=== PATIENT | male | born 1960 | race African-American/Black ===

== ENCOUNTER 2022-04-21 18:26 | Emergency (ER) | payer MEDICAID ==
[~2022-04-21] VITALS: Ht 182.9 cm; Wt 109.0 kg
[2022-04-21 18:30] VITALS: BP 149/83
[2022-04-21] MEDS ORDERED: ALBU18HF2 INH (18:53)
[2022-04-21] MEDS ORDERED: BECL10.6 INH (18:53)
[2022-04-21] MEDS ORDERED: P50 PO (18:54)
[2022-04-21] MEDS ORDERED: ALBUTEROL 6.7GM HFA INHALER ORI ONE (19:00)
[2022-04-21] MEDS ORDERED: PREDNISONE 20MG TABLET PO ONE (19:00)
== END 2022-04-21 19:24 | disposition home or self-care (01) ==
LOC: ER 18:26
DX: R06.02 Shortness of breath (principal); R50.9 Fever, unspecified; R05.9 Cough, unspecified; J45.909 Unspecified asthma, uncomplicated; I10 Essential (primary) hypertension
CPT/HCPCS: 94640; 99283; J7512; 99281

== ENCOUNTER 2022-08-02 16:44 | Emergency (ER) | payer MEDICAID ==
[~2022-08-02] VITALS: Ht 177.8 cm; Wt 89.0 kg
[~2022-08-02 16:44] MED LIST: ALBU18HF2 INH; BECL10.6 INH; P50 PO
[2022-08-02 16:56] VITALS: BP 132/87
[2022-08-02 19:12] LABS: BASOPHILS % 0.9 % (0.0-2.0); EOSINOPHILS % 7.6 % (0.0-5.0); HEMATOCRIT. 43.8 % (42.0-52.0); HEMOGLOBIN. 14.5 g/dL (14.0-18.0); LYMPHOCYTES % 58.5 % (20.0-50.0); MEAN CORPUSCULAR HEMOGLOBIN 27.1 pg (28.0-32.0); MEAN CORPUSCULAR VOLUME 81.9 fL (80.0-94.0); MEAN PLATELET VOLUME 9.2 fl (7.4-10.4); MONOCYTES % 6.1 % (2.0-8.0); NEUTROPHILS % 26.9 % (40.0-76.0); PLATELET 160 x1000/uL (130-400); RED BLOOD CELL COUNT 5.35 mill/uL (4.7-6.1); RED CELL DISTRIBUTION WIDTH 15.6 % (11.6-14.6)
[2022-08-02 19:16] LABS: CHLORIDE 106 mEq/L (98-107)
[2022-08-02] MEDS ORDERED: POTA-202 MT (23:56)
[2022-08-02] MEDS ORDERED: FURO-151 MT (23:56)
== END 2022-08-03 | disposition home or self-care (01) ==
LOC: ER 16:44
DX: R60.0 Localized edema (principal); I11.0 Hypertensive heart disease with heart failure; I50.9 Heart failure, unspecified
CPT/HCPCS: 36415; 80048; 83880; 85025; 93970; 99284

== ENCOUNTER 2022-10-16 18:07 | Emergency (ER) | payer MEDICAID ==
[~2022-10-16] VITALS: Ht 182.9 cm; Wt 107.0 kg
[~2022-10-16 18:07] MED LIST changes: +FURO-151 MT; +POTA-202 MT
[2022-10-16] MEDS ORDERED: ALBUTEROL (0.083%) 2.5MG/3ML NEB HHN STA (21:55)
[2022-10-16] MEDS ORDERED: METHYLPREDNISOLONE SOD SUCC 125 MG/2 ML VIAL IV STA (21:55)
[2022-10-16] MEDS ORDERED: IPRATROPIUM BROMIDE (0.02%) 0.5MG/2.5ML NEB HHN STA (21:55)
[2022-10-16] MEDS ORDERED: MAGNESIUM 2 G PREMIX 50 ML IV ONE (22:00)
[2022-10-17] MEDS ORDERED: ALBU6.7H3 INH (00:06)
[2022-10-17] MEDS ORDERED: P50 MT (00:06)
[2022-10-17 00:09] LABS: BASOPHILS % 0.9 % (0.0-2.0); EOSINOPHILS % 10.6 % (0.0-5.0); HEMATOCRIT. 45.4 % (42.0-52.0); HEMOGLOBIN. 15.2 g/dL (14.0-18.0); LYMPHOCYTES % 67.6 % (20.0-50.0); MEAN PLATELET VOLUME 9.9 fl (7.4-10.4); MONOCYTES % 5.3 % (2.0-8.0); NEUTROPHILS % 15.6 % (40.0-76.0); PLATELET 163 x1000/uL (130-400); RED BLOOD CELL COUNT 5.61 mill/uL (4.7-6.1); RED CELL DISTRIBUTION WIDTH 15.9 % (11.6-14.6)
[2022-10-17 00:11] LABS: CHLORIDE 109 mEq/L (98-107)
[2022-10-17 00:56] VITALS: BP 142/81
== END 2022-10-17 01:06 | disposition home or self-care (01) ==
LOC: ER 18:07
DX: J45.901 Unspecified asthma with (acute) exacerbation (principal); R25.2 Cramp and spasm; R94.31 Abnormal electrocardiogram [ECG] [EKG]; I10 Essential (primary) hypertension
CPT/HCPCS: 36415; 71045; 80053; 85025; 93005; 93971; 94640; 96365; 96375; 99285; J2930; J3475; Z7610

== ENCOUNTER 2022-10-21 01:59 | Emergency (ER) | payer MEDICAID ==
[~2022-10-21] VITALS: Ht 182.9 cm; Wt 106.3 kg
[~2022-10-21 01:59] MED LIST changes: +ALBU6.7H3 INH; +P50 MT
[2022-10-21 02:08] VITALS: BP 139/76
[2022-10-21] MEDS ORDERED: PENI500T MT (03:17)
[2022-10-21] MEDS ORDERED: P20 MT (03:17)
[2022-10-21] MEDS ORDERED: BECL10.6 INH (03:17)
== END 2022-10-21 03:18 | disposition left against medical advice (07) ==
LOC: ER 02:20
DX: Z53.21 Procedure and treatment not carried out due to patient leaving prior to being seen by health care provider (principal)

== ENCOUNTER 2022-11-20 17:29 | Emergency (ER) | payer MEDICAID ==
[~2022-11-20] VITALS: Ht 182.9 cm; Wt 82.0 kg
[~2022-11-20 17:29] MED LIST changes: +P20 MT; +PENI500T MT
[2022-11-20 17:35] VITALS: BP 138/103
[2022-11-20] MEDS ORDERED: PREDNISONE 20MG TABLET PO STA (20:08)
[2022-11-20] MEDS ORDERED: ALBUTEROL (0.083%) 2.5MG/3ML NEB HHN STA (20:08)
[2022-11-20] MEDS ORDERED: IPRATROPIUM BROMIDE (0.02%) 0.5MG/2.5ML NEB HHN STA (20:08)
[2022-11-20 21:29] LABS: BASOPHILS % 0.5 % (0.0-2.0); EOSINOPHILS % 12.4 % (0.0-5.0); HEMATOCRIT. 45.5 % (42.0-52.0); HEMOGLOBIN. 14.9 g/dL (14.0-18.0); LYMPHOCYTES % 61.6 % (20.0-50.0); MEAN CORPUSCULAR HEMOGLOBIN 27.2 pg (28.0-32.0); MEAN CORPUSCULAR VOLUME 83.2 fL (80.0-94.0); MEAN PLATELET VOLUME 8.9 fl (7.4-10.4); MONOCYTES % 8.3 % (2.0-8.0); NEUTROPHILS % 17.2 % (40.0-76.0); PLATELET 170 x1000/uL (130-400); RED BLOOD CELL COUNT 5.47 mill/uL (4.7-6.1); RED CELL DISTRIBUTION WIDTH 16.3 % (11.6-14.6)
[2022-11-20 21:37] LABS: CHLORIDE 108 mEq/L (98-107)
[2022-11-20] MEDS ORDERED: P50 MT (22:21)
[2022-11-20] MEDS ORDERED: ALBU6.7H3 INH (22:21)
== END 2022-11-20 22:27 | disposition home or self-care (01) ==
LOC: ER 17:29
DX: J45.901 Unspecified asthma with (acute) exacerbation (principal); G47.00 Insomnia, unspecified; Z20.822 Contact with and (suspected) exposure to COVID-19; I10 Essential (primary) hypertension; Z79.51 Long term (current) use of inhaled steroids; Z79.899 Other long term (current) drug therapy
CPT/HCPCS: 36415; 80053; 83880; 84484; 85025; 87426; 87804; 94640; 99283; C9803; J7512; Z7610

== ENCOUNTER 2022-12-12 16:25 | Emergency (ER) | payer MEDICAID ==
[~2022-12-12] VITALS: Ht 182.9 cm; Wt 105.0 kg
[2022-12-12 16:31] VITALS: BP 139/91
[2022-12-12] MEDS ORDERED: DEXAMETHASONE 4MG TABLET PO ONE (18:00)
[2022-12-12] MEDS ORDERED: IPRATROPIUM/ALBUTEROL 0.5-3(2.5)MG/3ML NEB HHN ONE (18:00)
[2022-12-12] MEDS ORDERED: NIRM1TAB PO (19:49)
[2022-12-12] MEDS ORDERED: ALBU6.7H3 INH (19:49)
== END 2022-12-12 20:00 | disposition home or self-care (01) ==
LOC: ER 16:25
DX: U07.1 COVID-19 (principal); J45.901 Unspecified asthma with (acute) exacerbation
CPT/HCPCS: 94640; 99283; J8540; Z7610

== ENCOUNTER 2023-03-24 17:33 | Emergency (ER) | payer MEDICAID ==
[~2023-03-24] VITALS: Ht 182.9 cm; Wt 93.0 kg
[~2023-03-24 17:33] MED LIST changes: +NIRM1TAB PO
[2023-03-24 18:03] VITALS: BP 169/97
[2023-03-24 20:07] LABS: BASOPHILS % 0.8 % (0.0-2.0); EOSINOPHILS % 11.9 % (0.0-5.0); HEMATOCRIT. 49.1 % (42.0-52.0); HEMOGLOBIN. 16.3 g/dL (14.0-18.0); LYMPHOCYTES % 48.4 % (20.0-50.0); MEAN CORPUSCULAR HEMOGLOBIN 27.3 pg (28.0-32.0); MEAN CORPUSCULAR VOLUME 82.3 fL (80.0-94.0); MEAN PLATELET VOLUME 9.4 fl (7.4-10.4); MONOCYTES % 6.6 % (2.0-8.0); NEUTROPHILS % 32.3 % (40.0-76.0); PLATELET 151 x1000/uL (130-400); RED BLOOD CELL COUNT 5.96 mill/uL (4.7-6.1); RED CELL DISTRIBUTION WIDTH 15.4 % (11.6-14.6)
[2023-03-24 20:16] LABS: PROTHROMBIN TIME 11.1 sec (9.6-11.0)
[2023-03-24 20:19] LABS: CHLORIDE 111 mEq/L (98-107)
[2023-03-24] MEDS ORDERED: TUSSL MT (22:26)
[2023-03-24] MEDS ORDERED: NEBU-270 MC (22:26)
== END 2023-03-24 23:28 | disposition home or self-care (01) ==
LOC: ER 17:33
DX: J45.909 Unspecified asthma, uncomplicated (principal); I10 Essential (primary) hypertension; F12.10 Cannabis abuse, uncomplicated; Z79.899 Other long term (current) drug therapy
CPT/HCPCS: 36415; 71045; 80053; 83880; 84484; 85025; 93005; 99285

== ENCOUNTER 2024-03-29 13:29 | Emergency (ER) | payer MEDICAID, OTHER ==
[~2024-03-29] VITALS: Ht 182.9 cm; Wt 108.9 kg
[~2024-03-29 13:29] MED LIST changes: +NEBU-270 MC; +TUSSL MT
[2024-03-29 13:46] VITALS: O2SAT 99
[2024-03-29] MEDS: IBUPROFEN 400MG TABLET PO NR (15:45)
[2024-03-29 21:12] LABS: BASOPHILS % 0.8 % (0.0-2.0); EOSINOPHILS % 6.9 % (0.0-5.0); HEMATOCRIT. 44.2 % (42.0-52.0); HEMOGLOBIN. 14.9 g/dL (14.0-18.0); LYMPHOCYTES % 50.4 % (20.0-50.0); MEAN CORPUSCULAR HEMOGLOBIN 28.4 pg (28.0-32.0); MEAN CORPUSCULAR HGB CONC 33.6 g/dL (31.0-37.0); MEAN CORPUSCULAR VOLUME 84.5 fL (80.0-94.0); MEAN PLATELET VOLUME 9.4 fl (7.4-10.4); MONOCYTES % 8.3 % (2.0-8.0); NEUTROPHILS % 33.6 % (40.0-76.0); PLATELET 167 x1000/uL (130-400); RED BLOOD CELL COUNT 5.23 mill/uL (4.7-6.1); WHITE BLOOD COUNT 5.4 x1000/uL (4.5-11.0)
[2024-03-29 21:16] LABS: CHLORIDE 110 mEq/L (98-107); POTASSIUM 3.9 mEq/L (3.5-5.1); SODIUM 140 mEq/L (136-145)
[2024-03-29 21:17] LABS: CARBON DIOXIDE 26 mEq/L (21-32)
[2024-03-29 21:18] LABS: CALCIUM 9.6 mg/dL (8.7-10.4)
[2024-03-29 21:22] LABS: CREATININE 0.9 mg/dL (0.6-1.3); GLUCOSE 83 mg/dL (70-105); UREA NITROGEN BLOOD 11 mg/dL (9-23)
[2024-03-29 21:23] LABS: TROPONIN I HIGH SENSITIVITY 4 ng/L (3.0-53)
[2024-03-29 21:24] LABS: ALANINE AMINOTRANSFERASE 46 IU/L (10-49); ALBUMIN 4.3 g/dL (3.2-4.8); ASPARTATE AMINOTRANSFERASE 50 IU/L (<34)
[2024-03-29 21:25] LABS: BILIRUBIN TOTAL 0.8 mg/dL (0.1-1.0); PROTEIN TOTAL 6.8 g/dL (6.0-8.3)
[2024-03-29 22:51] VITALS: BP 140/77; PULSE 64; RESP 18; TEMP 97.7
== END 2024-03-29 22:54 | disposition home or self-care (01) ==
LOC: ER 13:29
DX: R60.0 Localized edema (principal); M54.30 Sciatica, unspecified side; J45.909 Unspecified asthma, uncomplicated; I10 Essential (primary) hypertension; F12.90 Cannabis use, unspecified, uncomplicated
CPT/HCPCS: 36415; 71045; 80053; 83880; 84484; 85025; 93970; 99284

== ENCOUNTER 2024-04-15 18:12 | Emergency (ER) | payer OTHER ==
[~2024-04-15] VITALS: Ht 180.3 cm; Wt 110.0 kg
[2024-04-15 18:25] VITALS: O2SAT 95
[2024-04-15] MEDS: POVIDONE-IODINE 10% TOPICAL SOLN 240ML TOP ONE (18:44)
[2024-04-15] MEDS: LIDOCAINE HCL 1% 20ML VIAL (Pyxis) INJ INFIL ONE (18:44)
[2024-04-15 20:02] VITALS: BP 141/86; PULSE 82; RESP 16; TEMP 98.2
== END 2024-04-15 20:03 | disposition home or self-care (01) ==
LOC: ER 18:12
DX: S61.213A Laceration without foreign body of left middle finger without damage to nail, initial encounter (principal); W07.XXXA Fall from chair, initial encounter; Y93.89 Activity, other specified; Y92.89 Other specified places as the place of occurrence of the external cause; Y99.8 Other external cause status
CPT/HCPCS: 73140; 12001; 99283; J3490; Z7610 ×2

== ENCOUNTER 2024-04-29 22:01 | Emergency (ER) | payer OTHER ==
[~2024-04-29] VITALS: Ht 175.3 cm; Wt 107.0 kg
[2024-04-29 22:35] VITALS: BP 135/81; PULSE 73; RESP 18; TEMP 97.7; O2SAT 98
[2024-04-30 01:39] LABS: EOSINOPHILS % 6.1 % (0.0-5.0); HEMATOCRIT. 43.8 % (42.0-52.0); HEMOGLOBIN. 14.3 g/dL (14.0-18.0); LYMPHOCYTES % 46.8 % (20.0-50.0); MEAN CORPUSCULAR HEMOGLOBIN 27.6 pg (28.0-32.0); MEAN CORPUSCULAR HGB CONC 32.7 g/dL (31.0-37.0); MEAN CORPUSCULAR VOLUME 84.4 fL (80.0-94.0); MEAN PLATELET VOLUME 9.4 fl (7.4-10.4); MONOCYTES % 8.3 % (2.0-8.0); NEUTROPHILS % 37.8 % (40.0-76.0); PLATELET 216 x1000/uL (130-400); RED BLOOD CELL COUNT 5.19 mill/uL (4.7-6.1); RED CELL DISTRIBUTION WIDTH 14.6 % (11.6-14.6); WHITE BLOOD COUNT 6.3 x1000/uL (4.5-11.0)
[2024-04-30 01:44] LABS: CHLORIDE 111 mEq/L (98-107); POTASSIUM 3.8 mEq/L (3.5-5.1); SODIUM 142 mEq/L (136-145)
[2024-04-30 01:45] LABS: CALCIUM 9.8 mg/dL (8.7-10.4); CARBON DIOXIDE 24 mEq/L (21-32)
[2024-04-30 01:50] LABS: GLUCOSE 88 mg/dL (70-105); UREA NITROGEN BLOOD 14 mg/dL (9-23)
== END 2024-04-30 02:08 | disposition home or self-care (01) ==
LOC: ER 22:01
DX: R60.9 Edema, unspecified (principal); J45.909 Unspecified asthma, uncomplicated; I10 Essential (primary) hypertension; F12.10 Cannabis abuse, uncomplicated; Z79.899 Other long term (current) drug therapy
CPT/HCPCS: 36415; 71045; 80048; 83880; 85025; 99284

== ENCOUNTER 2024-08-24 23:14 | Emergency (ER) | payer OTHER ==
[~2024-08-24] VITALS: Ht 175.3 cm; Wt 107.0 kg
[2024-08-25] MEDS ORDERED: IPRATROPIUM/ALBUTEROL 0.5-3(2.5)MG/3ML NEB HHN ONE
[2024-08-25] MEDS ORDERED: DEXAMETHASONE 10 MG/ML VIAL IM ONE
[2024-08-25 00:10] LABS: BASOPHILS % 0.8 % (0.0-2.0); CHLORIDE 110 mEq/L (98-107); EOSINOPHILS % 4.9 % (0.0-5.0); HEMATOCRIT. 44.5 % (42.0-52.0); HEMOGLOBIN. 14.8 g/dL (14.0-18.0); LYMPHOCYTES % 42.4 % (20.0-50.0); MEAN CORPUSCULAR HEMOGLOBIN 27.5 pg (28.0-32.0); MEAN CORPUSCULAR HGB CONC 33.2 g/dL (31.0-37.0); MEAN CORPUSCULAR VOLUME 82.7 fL (80.0-94.0); MEAN PLATELET VOLUME 9.6 fl (7.4-10.4); MONOCYTES % 8.4 % (2.0-8.0); NEUTROPHILS % 43.5 % (40.0-76.0); PLATELET 149 x1000/uL (130-400); POTASSIUM 3.7 mEq/L (3.5-5.1); RED BLOOD CELL COUNT 5.38 mill/uL (4.7-6.1); RED CELL DISTRIBUTION WIDTH 15.4 % (11.6-14.6); SODIUM 142 mEq/L (136-145); WHITE BLOOD COUNT 5.8 x1000/uL (4.5-11.0)
[2024-08-25 00:11] LABS: CARBON DIOXIDE 26 mEq/L (21-32)
[2024-08-25 00:12] LABS: CALCIUM 9.1 mg/dL (8.7-10.4)
[2024-08-25 00:16] LABS: GLUCOSE 121 mg/dL (70-105)
[2024-08-25 00:17] LABS: TROPONIN I HIGH SENSITIVITY 6 ng/L (3.0-53); UREA NITROGEN BLOOD 11 mg/dL (9-23)
[2024-08-25 00:32] LABS: DIFFERENTIAL COMMENT 1
[2024-08-25] MEDS: IPRATROPIUM/ALBUTEROL 0.5-3(2.5)MG/3ML NEB HHN NR (00:47)
[2024-08-25 00:48] VITALS: PULSE 82; RESP 20; O2SAT 96
[2024-08-25] MEDS: DEXAMETHASONE 10 MG/ML VIAL IM NR (02:51)
[2024-08-25 03:26] LABS: CLARITY URINE CLEAR (CLEAR); COLOR URINE YELLOW (YELLOW); GLUCOSE URINE NEGATIVE (NEGATIVE); KETONES URINE TRACE (NEGATIVE); LEUKOCYTE ESTERASE URINE NEGATIVE (NEGATIVE); NITRITE URINE NEGATIVE (NEGATIVE); OCCULT BLOOD URINE NEGATIVE (NEGATIVE); PH URINE 5.5 (4.5-8.0); PROTEIN URINE 1+ (NEGATIVE); SPECIFIC GRAVITY URINE 1.034 (1.005-1.030)
[2024-08-25 03:30] LABS: BACTERIA URINE NONE SEEN; RBC URINE 0-2 /hpf (0-2); SQUAMOUS EPITHELIAL CELL URINE NONE SEEN /lpf (RARE/1+); WBC URINE 0-2 /hpf (0-2)
[2024-08-25] MEDS ORDERED: FURO-151 MT (03:36)
[2024-08-25] MEDS ORDERED: ALBU90AE INH (03:36)
[2024-08-25] MEDS ORDERED: ASPI-986 MT (03:36)
[2024-08-25] MEDS ORDERED: P50 PO (03:36)
[2024-08-25] MEDS ORDERED: BECL10.6 INH (03:36)
[2024-08-25 04:50] VITALS: BP 132/68; PULSE 58; RESP 12; TEMP 36.50292; O2SAT 98
== END 2024-08-25 04:51 | disposition home or self-care (01) ==
LOC: ER 23:14
DX: J45.901 Unspecified asthma with (acute) exacerbation (principal); R60.0 Localized edema; F12.10 Cannabis abuse, uncomplicated; M54.9 Dorsalgia, unspecified; Z79.899 Other long term (current) drug therapy; Z79.82 Long term (current) use of aspirin; Z79.52 Long term (current) use of systemic steroids; Z79.51 Long term (current) use of inhaled steroids
CPT/HCPCS: 80048; 85025; 84484; 36415; 93971; 99285; 81003; 71045; 73630; 94640; 96372; J1100; Z7610 ×4

== ENCOUNTER 2024-09-24 18:53 | Emergency (ER) | payer MEDICAID, OTHER ==
[~2024-09-24] VITALS: Ht 182.9 cm; Wt 107.0 kg
[~2024-09-24 18:53] MED LIST changes: +ALBU90AE INH; +ASPI-986 MT
[2024-09-24 19:02] VITALS: O2SAT 98
[2024-09-24] MEDS ORDERED: P20 MT (20:03)
[2024-09-24] MEDS ORDERED: ASPI-986 MT (20:03)
[2024-09-24] MEDS ORDERED: ALBU18HF2 INH (20:03)
[2024-09-24] MEDS ORDERED: BECL10.6 INH (20:03)
[2024-09-24] MEDS ORDERED: FURO-151 MT (20:03)
[2024-09-24 20:30] VITALS: BP 141/69; PULSE 78; RESP 16; TEMP 36.61404; O2SAT 99
[2024-09-24 20:38] LABS: BASOPHILS % 0.9 % (0.0-2.0); EOSINOPHILS % 8.3 % (0.0-5.0); HEMATOCRIT. 44.8 % (42.0-52.0); HEMOGLOBIN. 14.7 g/dL (14.0-18.0); LYMPHOCYTES % 48.3 % (20.0-50.0); MEAN CORPUSCULAR HEMOGLOBIN 27.1 pg (28.0-32.0); MEAN CORPUSCULAR HGB CONC 32.9 g/dL (31.0-37.0); MEAN CORPUSCULAR VOLUME 82.5 fL (80.0-94.0); MEAN PLATELET VOLUME 9.8 fl (7.4-10.4); MONOCYTES % 8.6 % (2.0-8.0); NEUTROPHILS % 33.9 % (40.0-76.0); PLATELET 154 x1000/uL (130-400); RED BLOOD CELL COUNT 5.44 mill/uL (4.7-6.1); RED CELL DISTRIBUTION WIDTH 15.6 % (11.6-14.6)
[2024-09-24 20:41] LABS: CHLORIDE 109 mEq/L (98-107); SODIUM 142 mEq/L (136-145)
[2024-09-24 20:42] LABS: CALCIUM 8.7 mg/dL (8.7-10.4); CARBON DIOXIDE 27 mEq/L (21-32)
[2024-09-24 20:47] LABS: CREATININE 1.2 mg/dL (0.6-1.3); GLUCOSE 112 mg/dL (70-105); UREA NITROGEN BLOOD 15 mg/dL (9-23)
[2024-09-24 20:48] LABS: TROPONIN I HIGH SENSITIVITY 5 ng/L (3.0-53)
== END 2024-09-24 20:31 | disposition home or self-care (01) ==
LOC: ER 18:53
DX: I11.0 Hypertensive heart disease with heart failure (principal); I50.9 Heart failure, unspecified; Z79.82 Long term (current) use of aspirin; Z79.899 Other long term (current) drug therapy; J45.909 Unspecified asthma, uncomplicated; Z76.0 Encounter for issue of repeat prescription
CPT/HCPCS: 36415; 71045; 80048; 84484; 85025; 93005; 99285

== ENCOUNTER 2025-10-25 14:51 | Emergency (ER) | payer MEDICAID ==
[~2025-10-25] VITALS: Ht 182.9 cm; Wt 105.0 kg
[~2025-10-25 14:51] MED LIST changes: -ALBU18HF2 INH; -ALBU6.7H3 INH; -BECL10.6 INH; -P20 MT; -P50 MT; -P50 PO
[2025-10-25 14:58] VITALS: O2SAT 98
[2025-10-25] MEDS ORDERED: CEPH500T MT (20:29)
[2025-10-25] MEDS ORDERED: SULF1TAB48 MT (20:29)
[2025-10-25 21:08] VITALS: BP 156/86; PULSE 60; RESP 15; TEMP 36.6; O2SAT 99
== END 2025-10-25 21:09 | disposition home or self-care (01) ==
LOC: ER 14:51
DX: L03.90 Cellulitis, unspecified (principal); R60.9 Edema, unspecified; I10 Essential (primary) hypertension; J45.909 Unspecified asthma, uncomplicated; I25.2 Old myocardial infarction; Z79.899 Other long term (current) drug therapy; Z79.82 Long term (current) use of aspirin
CPT/HCPCS: 73630; 93971; 99284